=== PATIENT | female | born 1995 | race Two or more races ===

== ENCOUNTER 2022-07-02 18:29 | Emergency (ER) | payer MEDICAID, OTHER ==
--- NOTE | 2022-07-02 20:57 | NUR ---
CALLED TO TRIAGE NO RESPONSE
--- NOTE | 2022-07-02 21:10 | NUR ---
CALLED TO TRIAGE NO RESPONSE
--- NOTE | 2022-07-02 21:28 | NUR ---
CALLED TO TRIAGE NO RESPONSE
== END 2022-07-02 21:47 | disposition left against medical advice (07) ==
LOC: ER 18:31
DX: Z53.21 Procedure and treatment not carried out due to patient leaving prior to being seen by health care provider (principal)